=== PATIENT | female | born 1990 | race Caucasian/White ===

== ENCOUNTER → 2019-12-15 10:10 | Outpatient (BNVA) | payer MEDICAID, SELFPAY | PROVIDERS: Family Provider Family Medicine; PCP Family Medicine; Visit Provider Obstetrics & Gynecology | DX: Z34.90 Encounter for supervision of normal pregnancy, unspecified, unspecified trimester (principal) | CPT/HCPCS: 81000 ==

== ENCOUNTER → 2020-01-09 09:40 | Outpatient (BNVA) | payer MEDICAID, SELFPAY | PROVIDERS: Family Provider Family Medicine; PCP Family Medicine; Visit Provider Obstetrics & Gynecology | DX: Z34.90 Encounter for supervision of normal pregnancy, unspecified, unspecified trimester (principal) | CPT/HCPCS: 81000 ==

== ENCOUNTER 2020-01-11 20:00 | Outpatient (CLI) | payer MEDICAID, SELFPAY ==
[2020-01-11] VITALS (11 sets, daily range): BP systolic 129–193; BP diastolic 76–110; PULSE 67–98; BMI 31.5
[2020-01-11] MEDS: labetalol 200 mg Tablet 100 MG PO (20:52)
[2020-01-11 21:18] LABS: Add Urine Microscopic? YES; Bilirubin Urine Neg (NEGATIVE); Blood Urine 2+ (Negative); Glucose Urine UA Norm (Normal); Ketones Urine Negative (Negative); Leukocyte Esterase Urine 1+ (Negative); Nitrate Urine Negative (Negative); Protein Urine 1+ (Negative); Specific Gravity, Urine 1.015 (1.005-1.030); Urine Appearance Cloudy (CLEAR); Urine Color Yellow (Yellow); Urobilinogen Urine Norm (Negative); pH Urine 6.5 (5-7)
[2020-01-11 21:19] LABS: Bacteria Urine 1+; Mucus Urine 1+; RBC Urine 0-4 /hpf (0-2); Squamous Epithelial Cell Urine 80-100 (0-5); Urine Creatinine 148 mg/dL (28-217); WBC Urine 25-40 /hpf (0-5)
[2020-01-11 21:20] LABS: Urine Protein Random 89 mg/dL
== END 2020-01-11 22:15 | disposition home or self-care (01) ==
LOC: OPOB 20:06 → OBGYN 20:07
PROVIDERS: Family Provider Family Medicine; PCP Family Medicine; Visit Provider Family Medicine
DX: O16.3 Unspecified maternal hypertension, third trimester (principal); Z3A.36 36 weeks gestation of pregnancy; R51 Headache
CPT/HCPCS: 59025; 81001; 82570; 84156; 99211

== ENCOUNTER 2020-01-12 08:07 | Inpatient (IN) | payer MEDICAID, SELFPAY ==
[2020-01-12] VITALS (39 sets, daily range): BP systolic 105–168; BP diastolic 68–102; PULSE 70–100; RESP 16–18; TEMP 36.6–36.9; O2SAT 95–98; BMI 31.5
--- NOTE | 2020-01-12 07:52 | PC.NURSE ---
Patient described her symptoms upon arrival as: blurred vision, headache she rated a 10/10, nausea, feeling like she could throw up, which started around 4 am. Patient reports taking 6 am which did not help. Patient states she is having painful contractions, but unsure how close together they are.
--- NOTE | 2020-01-12 08:10 | PC.NURSE ---
Notified anesthesia -reaching Dr. Thompson - that a section was called for patient. Dr. Bonds is in the department ready to do the section as soon as anesthesia is ready. Anesthesia stated they should be ready within the hour to do the section.
--- NOTE | 2020-01-12 08:15 | P.HP_ITS ---
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 She has been followed b y this physician as well as Dr. Bonds for repeat section. Yesterday she began feeling badly and came to [facility] labor and delivery where she was found to have an elevated blood pressure of 150s over 90s. 1 dose of labetalol 100 mg brought down nicely. At that time she had a urine protein of 1+ but as she was otherwise asymptomatic she was allowed to go home. This morning she returns having said that shortly after she got home she started feeling bad again and had a severe headache overnight. Last evening she did not complain of a headache. She also complains of blurred vision this morning and continues to have 1+ edema in her lower extremities. She also has pain over her incision site. Review of Systems Const: Denies: fever(s), chills or body aches ENMT: Denies: throat pain or ear or mastoid pain Card: Reports: edema (Mostly in the legs and feet.); Denies: chest pain, palpitations or syncope Resp: Denies: dyspnea, productive cough or non-productive cough GI: Reports: nausea; Denies: abdominal pain or vomiting : Reports: pelvic pain (She feels as if she is beginning to have some contractions and she has incisional pain reports she had previous ); Denies: flank pain, difficulty voiding, vaginal bleeding or vaginal discharge Musc: Denies: neck pain or back pain Skin/Breast: Denies: rash or new lesions Neuro: Reports: headache(s) and sensory changes (Blurred vision that comes and goes.); Denies: confusion, Slurred speech present, difficulty communicating thoughts or seizure-like activity Psych: Reports: anxiety Endo: Denies: polyuria or polydipsia Kwan/Lymph: Denies: easy bruising All/Imm: Denies: urticaria Medications/Allergies Home Medications Medication Instructions Recorded Confirmed Last Taken Type prenat.vits,edward,zou-aepe-pumxh 2 tab PO DAILY tab 12/15/19 01/11/2001/09/20 10:00 History Allergies Allergy/AdvReac Type Severity Reaction Status Date / Time No Known Allergies Allergy Verified 01/12/20 08:17 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 [facility] [place] of section, low transverse (11/20/11) Performed in [place]. History of section, low transverse (03/02/14) repeat section in [place] History of section, low transverse (10/13/16) [place] [facility] [place] 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 Specific Issues/Plans * Prior section x 4 - plan repeat * Late entry to care at 17 weeks. * Considering sterilization - [facility] signed 12/15/2019 * Continuing care with Dr. Villagran. Physical Exam Const: COMMON NORMALS: patient oriented x3, healthy appearing, alert and well nourished GENERAL APPEARANCE: cooperative and anxious ORIENTATION/CONSCIOUSNESS: Yes awake, Yes oriented to person, Yes oriented to place and Yes oriented to time HENMT: COMMON NORMALS: normocephalic and Normal nasal mucous membranes and turbinates present FACE & SINUS: normal facial exam Eye: COMMON NORMALS: Equal, round and reactive pupils present and EOMs intact bilaterally Neck/C-Spine: COMMON NORMALS: full ROM and no lymphadenopathy Resp: COMMON NORMALS: normal respiratory effort, No retractions, No use of accessory muscles and clear to auscultation bilaterally Cardio: COMMON NORMALS: regular rate, regular rhythm and No murmurs present (Cardio) GI: COMMON NORMALS: Normal to inspection, nondistended, normoactive bowel sounds present and Soft to palpation; negative for non-tender PALPATION: Yes Tenderness to palpation present (GI) (Mild tenderness over previous incision.) Back/Pelvis: COMMON NORMALS: no CVA tenderness and thoracic and lumbar spine normal to inspection Extremity: COMMON NORMALS: full ROM and capillary refill normal; negative for no pedal edema (Patient has 1+ edema from approximately the knees down.) Neuro: COMMON NORMALS: patient oriented x3, CN's II-XII intact bilaterally, moves all extremities, no focal motor deficits and deep tendon reflexes 2+ bilaterally SENSORIUM/ORIENTATION: Yes alert Psych: COMMON NORMALS: mental status grossly normal APPEARANCE: Yes grossly normal MOOD & AFFECT: Yes anxious Skin: COMMON NORMALS: no rashes or lesions noted A&P Assessment and plan (1) Severe preeclampsia: Patient has signs of severe preeclampsia and therefore requires admission and delivery of the . As she has had previous sections x4 she requires a repeat section. She has discussed with this physician and Dr. Bonds her desire for tubal ligation. She will be started on magnesium with a bolus and then 2 g/h intravenously. We will monitor blood pressure and other signs and symptoms of problems. section will be performed within the hour by Dr. Bonds. Status: Acute (2) 36 weeks gestation of : This is an approximately 35 to 36-week intrauterine that has proceeded well up until this time. She requires urgent section. Dr. Bonds has been consulted. She also requested tubal ligation. Status: Acute Attestations Medical Necessity Statement*: This patient requires urgent section secondary to severe preeclampsia. She requires admission to the hospital on expect this hospital stay to probably last greater than 2 midnights. Time Spent in Patient Care: 16 - 35 minutes Coding Level of Care Code Acute Bartender for g Fwd Exam Comprehensive Diagnoses Severe preeclampsia O14.10 36 weeks gestation of Z3A.36
--- NOTE | 2020-01-12 08:32 | PM.CONSULT ---
Providers/Reason For Consult Consulting Physican/Specialty*: Ayden Bonds MD Reason for Consult*: Need for repeat Attending Physician: Shay Villagran MD Primary Care Provider: Shay Villagran MD History of Present Illness History of Present Illness Lien Dominguez is a 29 year old female 7, para 5-0-1-4 with an LMP of 04/29/2019 and an EDC of 02/03/2020 based on LMP, which places her at 36-6/7 weeks gestation. She was last seen in my office on 01/09/2020 to discuss repeat section with sterilization. Her care has been provided by Dr. Villagran. Patient presented to labor and delivery this morning complaining of not feeling well with bad headache. She had been into labor and delivery yesterday evening and was noted to have elevated blood pressure and was treated with labetalol. 24-hour urine had been started at that time. This morning she reported having a bad headache and not feeling well overall. She is also reporting worsening swelling. She reports baby has been moving well. She denied any vaginal bleeding or leaking of fluid. Review of Systems Const: Denies: fever(s) or chills Eyes: Denies: change in vision ENMT: Denies: throat pain or nasal congestion Card: Denies: chest pain, palpitations, swelling of feet/ankles or lightheadedness Resp: Denies: dyspnea, productive cough, non-productive cough or wheezing GI: Reports: abdominal pain; Denies: nausea or vomiting : Reports: urinary frequency; Denies: dysuria, vaginal bleeding or vaginal discharge Neuro: Reports: headache(s); Denies: dizziness or seizure-like activity Psych: Denies: anxiety or depression Endo: Denies: cold intolerance Kwan/Lymph: Denies: easy bruising or easy bleeding Meds/Allergies Home Medications and Allergies Home Medications Medication Instructions Recorded Confirmed Last Taken Type prenat.vits,edward,dnd-nkvy-igolo 2 tab PO DAILY tab 12/15/19 01/12/20 01/10/20 10:00 History Allergies Allergy/AdvReac Type Severity Reaction Status Date / Time No Known Allergies Allergy Verified 01/12/20 08:17 PFSH Acute PFSH: Medical History Patient denies medical problems Surgical History History of section, low transverse (07/05/09) Dx: Breech. Performed by Dr. Barney [place] [facility] [place]. History of section, low transverse (11/20/11) Performed in [place]. History of section, low transverse (03/02/14) repeat section in [place] History of section, low transverse (10/13/16) Performed by Dr. Carter at [facility] [place]. Family History Mother Diabetes Social History Smoking and tobacco status: never smoked Alcohol intake: never Substance/Drug Use: never Vitals/I&O/Wt Last Vital Signs Temp 97.9 F 01/12/20 07:52 Resp 18 01/12/20 07:52 blood pressure was 170s over 110s at my evaluation Physical Exam Const: COMMON NORMALS: no acute distress, average body habitus, alert and well nourished GENERAL APPEARANCE: well developed ORIENTATION/CONSCIOUSNESS: Yes oriented to person, Yes oriented to place and Yes oriented to time Neck/C-Spine: COMMON NORMALS: Thyroid normal GENERAL: Yes trachea midline THYROID: Thyroid normal Resp: COMMON NORMALS: normal respiratory effort and clear to auscultation bilaterally AUSCULTATION: clear to auscultation bilaterally Cardio: COMMON NORMALS: regular rate, regular rhythm, No gallops present (Cardio), No murmurs present (Cardio) and No rub (Cardio) RATE: regular rate RHYTHM: regular rhythm PERIPHERAL PULSES: posterior tibial pulses present GI: COMMON NORMALS: Soft to palpation, No hepatosplenomegaly present and no masses INSPECTION: Yes gravid abdomen AUSCULTATION: Yes normoactive bowel sounds PALPATION: Yes Soft to palpation, Yes Tenderness to palpation present (GI) (Mild tenderness in the lower abdomen over the uterine area.), Yes No hepatosplenomegaly present and No Hernia present : EXTERNAL FEMALE EXAM: No Hernia present Extremity: COMMON NORMALS: no calf tenderness NARRATIVE EXTREMITY EXAM: 2+ lower extremity edema bilaterally Neuro: COMMON NORMALS: deep tendon reflexes 2+ bilaterally (At the knees and 2 beat clonus at the ankles.) SENSORIUM/ORIENTATION: Yes alert, Yes oriented to person, Yes oriented to place and Yes oriented to time Psych: COMMON NORMALS: normal affect MOOD & AFFECT: Yes euthymic mood Skin: COMMON NORMALS: no rashes or lesions noted GENERAL SKIN EXAM: no rashes or lesions noted A&P Assessment and plan (1) Severe preeclampsia: Patient at least has gestational hypertension with severe features including severe level hypertension with severe headache. She is currently being evaluated for probable preeclampsia. Protein creatinine ratio was pending. She is being started on magnesium sulfate for seizure prophylaxis. Will treat blood pressure with medications as needed. Discussed with patient and partner that recommendations are to proceed with delivery at this time since she is 36-6/7 weeks gestation. Since she is a repeat section she will be prepared for surgery. Status: Acute Qualifiers: Trimester: third trimester Qualified Code(s): O14.13 - Severe pre-eclampsia, third trimester (2) Contraception management: On 12/15/2019, permanence of sterilization was discussed with the patient in detail. Alternatives including control pills, Ortho Evra, NuvaRing, Depo-Provera, IUDs, Nexplanon, condoms, diaphragms, family planning methods, and vasectomy were discussed with the patient. Risks and failure rates associated with these methods were discussed. Different sterilization methods including and interval sterilization by partial salpingectomy, complete salpingectomy, tubal fulguration, and Falope ring application were discussed including failure rates, surgical risks, and expectations following surgery. Inability of complete salpingectomy to be reversed was discussed. Risk of ectopic was discussed. Medicaid consent signed 12/15/2019. Sterilization was again reviewed with her on 01/09/2020 and she was still wished to proceed with sterilization. Today I reviewed with her permanence of sterilization. The inability of complete removal of the tubes to be reversed was discussed. Failure rates were discussed. Questions were answered. She still wished to proceed with sterilization with complete removal of the tubes. Status: Acute Qualifiers: Contraceptive encounter type: sterilization Qualified Code(s): Z30.2 - Encounter for sterilization (3) Maternal care for unspecified type scar from previous delivery: Patient has had 4 prior sections and is not considered a candidate. She had been previously scheduled for repeat section. I reviewed with her today the risks of repeat section including bleeding to the point of needing a blood transfusion, infection, and injury to intra-abdominal organs including bowel, bladder, blood vessels, nerves, and ureters. Questions were answered. She is being prepared for surgery. Status: Acute Qualifiers: Previous delivery type: low transverse Qualified Code(s): O34.211 - Maternal care for low transverse scar from previous delivery Coding Level of Care Code Acute Watch And Clock Repairer for Chg Fwd Diagnoses Severe preeclampsia O14.13 Trimester: third trimester Contraception management Z30.2 Contraceptive encounter type: sterilization Maternal care for unspecified type scar from previous delivery O34.211 Previous delivery type: low transverse
[2020-01-12] MEDS: magnesium sulfate premix 4 GM/100 ML PREMIX IV (08:45)
[2020-01-12] MEDS: lactated ringers 1,000 ML 999 ML IV (08:45)
[2020-01-12] MEDS: metoclopramide 5 mg/mL SDV 2 mL 10 MG IVP (09:01)
[2020-01-12] MEDS: citric acid-sodium citrate 30 mL UDC PO (09:01)
[2020-01-12] MEDS: famotidine 20 mg/2 mL INJ IVP (09:01)
[2020-01-12] MEDS: magnesium sulfate premix 20 GM/500 ML BAG IV ×2 (09:03→23:36)
--- NOTE | 2020-01-12 09:07 | PC.NURSE ---
Patient is missing monitor strip and vital signs from 0812 to 0843 due to patient admission status being changed in the computer system.
--- NOTE | 2020-01-12 09:11 | PC.NURSE ---
Dr. Thompson at patient bedside performing preop consult.
[2020-01-12 09:13] LABS: Basophils % 0.1 %; Hematocrit 37.3 % (37.0-47.0); Lymphocytes # 2.1 10^3/uL (0.8-4.8); Lymphocytes % 25.5 %; Mean Corpuscular HGB Conc 32.2 g/dL (30.0-36.0); Mean Corpuscular Hemoglobin 26.4 pg (28.0-34.0); Mean Corpuscular Volume 82.2 fL (81-99); Mean Platelet Volume 11.6 fL (7.4-10.4); Monocytes # 0.4 10^3/uL (0.2-0.9); Monocytes % 5.1 %; Neutrophils # 5.65 10^3/uL (1.8-7.7); Neutrophils % 68.8 %; Nucleated Red Blood Cells % 0 %; Platelet Count 167 10^3/cmm (130-400); Red Blood Count 4.54 10^6/uL (4.1-5.3); Red Cell Distribution Width 12.8 % (12.1-15.1); White Blood Count 8.2 10^3/uL (4.0-10.0)
--- NOTE | 2020-01-12 11:24 | P.OP_ITS ---
Operative Report Date of procedure: January 12, 2020 Pre-op Diagnosis: 1. Severe preeclampsia in third trimester at 36-6/7 weeks gestation 2. Prior section x4, not a candidate 3. Undesired fertility Post-op Diagnosis: 1. Severe preeclampsia - delivered 2. Prior section, not a candidate 3. Undesired fertility 4. Viable male infant Procedure Done: Repeat low transverse section, Bilateral complete salpingectomy Specimens removed/disposition: Right and left fallopian tubes Surgeon: Ayden Bonds Rig Supervisor: Shay Villagran Anesthesia: Other (Spinal) Estimated blood loss (mL): 500 IV fluids (mL): 1,000 Urine output (mL): 100 Complications: None Findings: 1. Viable male infant, cephalic presentation, weight 5 lbs 0 oz (2265 g), length 17-1/2 inches, Apgars 9 at 1 minute and 9 at 5 minutes 2. Normal-appearing uterus, tubes, and ovaries. Brief History: Patient is a 29-year-old 7, para 5-0-1-4 with an LMP of 04/29/2019 and an EDC of 02/03/2020 based on LMP and consistent with ultrasound, which placed her at 36-6/7 weeks gestation. She presented to labor and delivery this morning with a complaint of not feeling well and having a bad headache. She had been evaluated in L&D yesterday by Dr. Villagran, her provider for pregancy, with elevated blood pressures and was given a single dose of labetalol at that time. 24-hour urine had been started for total protein. At presentation today, she was reporting worsening swelling, development of a bad headache, and in general not feeling well. Blood pressures were again significantly elevated (highest 170s/110s). Due to the severe hypert ension and neurologic changes, she was considered as having at least severe gestational hypertension and with her 1+ proteinuria noted yesterday, she was felt to most likely represent severe preeclampsia. As a result decision was made to proceed with delivery. With her 4 prior 's, she was prepared for a repeat section. She had also stated during the she wanted to have a sterilization performed. She still desires that today. Procedure: Dr. Villagran was present for the entire case and assisted with the entire surgery. Patient was taken to the operating room where spinal anesthesia was obtained. She was prepped and draped in the usual sterile fashion in a dorsal supine position with a leftward tilt. Arguello catheter and sequential compression boots had been placed prior to starting the case. A Pfannenstiel skin incision was made with a knife through the patient's prior scar and carried down to the underlying fascia with the knife. Fascia was incised in the midline with the knife and extended laterally with Morris scissors. Superior aspect of the fascia was grasped with Boaz clamps, elevated, and sharply and bluntly dissected. The inferior aspect of the fascia was grasped with Boaz clamps, elevated, and sharply and bluntly dissected. The rectus muscles were in the midline. Peritoneum was sharply entered. Peritoneal incision was extended both superiorly and inferiorly with good visualization of the bladder. Bladder blade was inserted. The vesicouterine peritoneum was tented up and sharply entered. It was extended laterally and the bladder flap was created digitally. Bladder blade was reinserted. The lower uterine segment was noted to be quite thin. A transverse incision was made with the knife in the lower uterine segment. Clear fluid was obtained upon entry into the uterine cavity. The 's head was delivered and no nuchal cords were noted. The rest of the infant delivered atraumatically. Nose and mouth were suctioned with bulb suction. Cord was clamped and cut and the infant was handed off to the waiting nurses. Cord blood was obtained. Placenta was delivered via uterine massage. Patient received 20 units of Pitocin in the IV fluids. The uterus was exteriorized and cleared of clots and debris. The uterine incision was closed in a running locking fashion using 0 Vicryl suture. The incision was imbricated using 0 Vicryl suture in a horizontal mattress fashion. The incision was inspected and noted to be hemostatic. The left fallopian tube was grasped with Coventry clamps. The mesosalpinx was transilluminated, identifying the vessels coming to the tubes. Using 2-0 chromic suture, the vessels coming through the mesosalpinx to the fallopian tube were individually tied. The mesosalpinx was then cut with electrocautery. The vessels at the distal end of the tube were tied with a free tie of 0 plain suture. The proximal end of the tube was tied with a free stitch of 0 plain suture. These were then cut, completely excising the tube. The ends were cauterized with electrocautery. The right fallopian tube was grasped with Coventry clamps. The mesosalpinx was transilluminated, identifying the vessels coming to the tubes. Using 2-0 chromic suture, the vessels coming through the mesosalpinx to the fallopian tube were individually tied. The mesosalpinx was then cut with electrocautery. The vessels at the distal end of the tube were tied with a free tie of 0 plain suture. The proximal end of the tube was tied with a free stitch of 0 plain suture. These were then cut, completely excising the tube. The ends were cauterized with electrocautery. Posterior cul-de-sac was thoroughly irrigated and cleared of clots and blood. The uterus was returned to the abdomen. The uterine incision was irrigated and noted to be hemostatic. The gutters were cleared of clots and blood. The rectus muscles and peritoneum were reapproximated in the midline using interrupted stitches of 2-0 Vicryl suture. The muscle layer was irrigated and noted to be hemostatic. The fascia was reapproximated using 0 Vicryl suture in a running fashion. The subcutaneous layer was irrigated and brought to hemostasis using electrocautery. It was reapproximated using 3-0 plain suture in an interrupted fashion. Skin was reapproximated using 4-0 Vicryl suture in a subcuticular fashion. Steri-Strips were applied. Patient tolerated the procedures well. Sponge, needle, and instrument counts were correct. DRAINS: Arguello catheter POSTOPERATIVE STATUS: The patient was left to recover in satisfactory condition. Patient will be continued on magnesium following delivery.
[2020-01-12] MEDS: dextrose 5%-lactated ringers 1,000 ML 75 ML IV (14:00)
[2020-01-12 16:26] LABS: Magnesium Level (OB Only) 6.1 mg/dL (5.0-7.5)
[2020-01-12] MEDS: ketorolac 30 mg/mL INJ IVP ×2 (17:14→23:36)
[2020-01-12] MEDS: sodium chloride 0.9% 500 ML 999 ML IV (17:14)
[2020-01-12] MEDS: ondansetron 2 mg/ML SDV 2 mL 4 MG IVP (17:14)
[2020-01-12] MEDS: labetalol 5 mg/mL SDV 20mL 20 MG IVP (17:38)
[2020-01-12 21:22] LABS: Magnesium Level (OB Only) 6.9 mg/dL (5.0-7.5)
[2020-01-13] VITALS (19 sets, daily range): BP systolic 130–149; BP diastolic 79–98; PULSE 80–93; RESP 16; TEMP 36.7–36.9; O2SAT 95
[2020-01-13 03:10] LABS: Magnesium Level (OB Only) 6.4 mg/dL (5.0-7.5)
[2020-01-13] MEDS: dextrose 5%-lactated ringers 1,000 ML 75 ML IV (04:14)
[2020-01-13] MEDS: ketorolac 30 mg/mL INJ IVP (05:42)
--- NOTE | 2020-01-13 07:29 | ANE.PACU2 ---
Inpatient post-anesthesia follow up: Airway intact: Yes Vital signs: Temperature 98.0 F Pulse Rate 80 Respiratory Rate 16 Blood Pressure 141/86 Pulse Oximetry 97 Oxygen Delivery Me thod Room Air Oxygen Flow Rate Fraction of Inspir ed Oxygen Hydration adequate: Yes Nausea and vomiting: No Pain level: 1 Mental status: Baseline Additional Comments: no headaches, no signs of infection at epidural site, no residual numbness/weakness of legs
--- NOTE | 2020-01-13 07:38 | PM.OBGYPN ---
INSURANCE ADJUSTOR Subjective Labor: Amniotic Membrane Status: Intact Monitor Mode: External Contraction Pattern: Rare Status: Category l Vitals/I&O/Wt Last Vital Signs Temp 98.0 F 01/12/20 22:45 Pulse 80 01/13/20 07:30 Resp 16 01/12/20 12:00 BP 133/85 01/13/20 07:30 Pulse Ox 97 01/12/20 12:00 01/12/20 01/13/20 01/13/20 22:59 06:59 14:59 Intake Total 1460.00 / 1807.50 669.375 / 2476.875 Output Total 425 / 1450 700 / 2150 Balance 1035.00 / 357.50 -30.625 / 326.875 Weight last 48 hrs Weight 75.75 kg Physical Exam Narrative: EXAM NARRATIVE: Patient is doing well and denies any significant pain. She states that baby is breast-feeding well. She has had mild lochia. Const: COMMON NORMALS: no acute distress and alert ORIENTATION/CONSCIOUSNESS: Yes awake Resp: COMMON NORMALS: normal respiratory effort, No retractions and No use of accessory muscles Cardio: COMMON NORMALS: regular rate, regular rhythm and No murmurs present (Cardio) RATE: regular rate RHYTHM: regular rhythm GI: COMMON NORMALS: Normal to inspection, nondistended, normoactive bowel sounds present and Soft to palpation PALPATION: Yes Soft to palpation Extremity: GENERAL: No edema (Trace edema.) Neuro: COMMON NORMALS: CN's II-XII intact bilaterally, moves all extremities and no focal motor deficits SENSORIUM/ORIENTATION: Yes alert Psych: COMMON NORMALS: mental status grossly normal INSIGHT: Good insight present (Psych) JUDGEMENT: Good judgement present (Psych) Urinary Catheter Management^: Arguello: Cath Placed During This Visit: yes Urinary Catheter Date of Insertion: 01/12/20 Urinary Catheter Time of Insertion: 10:05 Data : 01/12/20 08:10 A&P Assessment and plan (1) Severe preeclampsia: Patient's blood pressures come down nicely. She also has less edema apparent this morning. She is feeling well. Will follow guidance of Dr. Bonds the corner brace block machine operator regarding magnesium. I suspect will be able to discontinue today. Status: Acute Qualifiers: Trimester: third trimester Qualified Code(s): O14.13 - Severe pre-eclampsia, third trimester (2) Status post delivery: Patient is doing well post surgery. She is ambulating and denies any significant pain. Status: Acute Attestations Medical Necessity Statement*: Patient is status post section for severe preeclampsia. She requires at least 1 more midnight hospital stay. Time Spent in Patient Care: 16 - 35 minutes Coding Level of Care Code Acute Law Professor for [facility] Fwd Diagnoses Severe preeclampsia O14.13 Trimester: third trimester Status post delivery Z98.891
[2020-01-13 08:33] LABS: Hematocrit 29.3 % (37.0-47.0); Hemoglobin 9.5 g/dL (11.5-15.3); Mean Corpuscular HGB Conc 32.4 g/dL (30.0-36.0); Mean Corpuscular Hemoglobin 26.7 pg (28.0-34.0); Mean Corpuscular Volume 82.3 fL (81-99); Mean Platelet Volume 11.3 fL (7.4-10.4); Platelet Count 154 10^3/cmm (130-400); Red Blood Count 3.56 10^6/uL (4.1-5.3); Red Cell Distribution Width 13.1 % (12.1-15.1); White Blood Count 7.1 10^3/uL (4.0-10.0)
[2020-01-13 08:55] LABS: Magnesium Level (OB Only) 6.3 mg/dL (5.0-7.5)
[2020-01-13] MEDS: prenatal vitamin Capsule 1 CAP PO (10:26)
[2020-01-13] MEDS: docusate sodium 100 mg Capsule PO (10:26)
--- NOTE | 2020-01-13 13:02 | PM.PN ---
Subjective Subjective: Interval history: Reports feeling better off of the magnesium. Denies lightheadedness or dizziness with sitting up in bed. Denies shortness of breath or chest pain. States headache has resolved. Denies nausea or vomiting. Tolerating clear liquids. Reports starting to pass a little flatus. Reports having more pain this morning, but has not taken any of the [place]. Vitals/I&O/Wt Last Vital Signs Temp 98.1 F 01/13/20 06:45 Pulse 84 01/13/20 12:30 Resp 16 01/13/20 06:45 BP 130/81 01/13/20 12:30 Pulse Ox 97 01/12/20 12:00 01/12/20 01/13/20 01/13/20 22:59 06:59 14:59 Intake Total 1460.00 / 1807.50 669.375 / 2476.875 Output Total 425 / 1450 800 / 2250 1450 / 1450 Balance 1035.00 / 357.50 -130.625 / 226.875 -1450 / -1450 Weight last 48 hrs Weight 167 lb Physical Exam Const: COMMON NORMALS: no acute distress, average body habitus, alert and well nourished GENERAL APPEARANCE: well developed ORIENTATION/CONSCIOUSNESS: Yes oriented to person, Yes oriented to place and Yes oriented to time Resp: COMMON NORMALS: normal respiratory effort and clear to auscultation bilaterally AUSCULTATION: clear to auscultation bilaterally Cardio: COMMON NORMALS: regular rate, regular rhythm, No gallops present (Cardio) and No rub (Cardio) RATE: regular rate RHYTHM: regular rhythm GI: COMMON NORMALS: Soft to palpation, No hepatosplenomegaly present and no masses (Except for mildly tender uterus) INSPECTION: Yes incision (Clean dry and intact with Steri-Strips present.) AUSCULTATION: Yes normoactive bowel sounds PALPATION: Yes Soft to palpation, Yes Tenderness to palpation present (GI) (Lower abdomen), Yes No hepatosplenomegaly present and No Hernia present : EXTERNAL FEMALE EXAM: No Hernia present Extremity: COMMON NORMALS: no calf tenderness NARRATIVE EXTREMITY EXAM: 1+ lower extremity edema bilaterally. SCDs in use. Neuro: SENSORIUM/ORIENTATION: Yes alert, Yes oriented to person, Yes oriented to place and Yes oriented to time Psych: COMMON NORMALS: normal affect MOOD & AFFECT: Yes euthymic mood Urinary Catheter Management^: Arguello: Cath Placed During This Visit: yes Urinary Catheter Date of Insertion: 01/12/20 Urinary Catheter Time of Insertion: 10:05 Data : 01/13/20 08:15 A&P Assessment and plan (1) Severe pre-eclampsia, delivered, current hospitalization: Patient had severe preeclampsia and was delivered yesterday morning. Was continued on magnesium following delivery for seizure prophylaxis. At the 24-hour point this morning, she had started diuresing and magnesium sulfate was stopped. She has continued to diurese since stopping the magnesium. Will increase activities at this time. Continue to monitor blood pressure with the increase in activities. Status: Acute (2) Maternal care for unspecified type scar from previous delivery: Postoperative day 1, status post repeat section with tubal ligation. Patient doing well from a surgical standpoint. May increase activities at this time. Pain medication discussed with patient. Encouraged patient to take oral medications as needed for the pain. Advance to regular diet once passing flatus. Status: Acute Qualifiers: Previous delivery type: low transverse Qualified Code(s): O34.211 - Maternal care for low transverse scar from previous delivery Attestations Medical Necessity Statement*: Postoperative day 1 with repeat cesearan section. Patient is needing bp monitoring with increase in activity due to the pre-eclampsia. Coding Level of Care Code Acute Documentation Liaison for [facility] Fwd Diagnoses Severe pre-eclampsia, delivered, current hospitalization O14.14 Maternal care for unspecified type scar from previous delivery O34.211 Previous delivery type: low transverse
[2020-01-13] MEDS: HYDROcodone-acetaminophen 5-325 mg Tablet PO ×2 (14:22→18:17)
--- NOTE | 2020-01-13 15:29 | PC.NURSE ---
pt ambulated for 15 min, Deanna dizziness, ambulated well.
[2020-01-14] VITALS (8 sets, daily range): BP systolic 146–168; BP diastolic 88–105; PULSE 69–91; RESP 16–18; TEMP 36.7–37.2; O2SAT 96–99
[2020-01-14] MEDS: lanolin oint 7 gm 1 APPLIC TOPICAL (05:27)
[2020-01-14] MEDS: HYDROcodone-acetaminophen 5-325 mg Tablet PO ×3 (05:30→15:47)
--- NOTE | 2020-01-14 06:09 | PC.NURSE ---
Pt. rating her pain at an 7-8. Pain medication given and will recheck BP
[2020-01-14] MEDS: prenatal vitamin Capsule 1 CAP PO (08:51)
--- NOTE | 2020-01-14 15:10 | PM.OBGYDC ---
Discharge Providers ASSISTANT PROFESSOR OF SOCIOLOGY Date of Admission: 01/12/20 08:07 Date of Discharge: 01/14/20 Attending Provider at Admission: Shay Villagran MD Attending Provider at Discharge: Shay Villagran MD Primary ASSISTANT PROFESSOR OF SOCIOLOGY: Ayden Bonds MD Primary Care Provider: Shay Villagran MD Diagnoses at Discharge Discharge Diagnosis (1) Severe pre-eclampsia, delivered, current hospitalization: Status: Acute (2) Maternal care for unspecified type scar from previous delivery: Status: Resolved Qualifiers: Previous delivery type: low transverse Qualified Code(s): O34.211 - Maternal care for low transverse scar from previous delivery Reason for Visit Reason for Visit: headache, increased blood pressure Hospital Course Hospital Course: Patient is a 29-year-old female 7, para 5-0-1-4 with an LMP of 04/29/2019 and an EDC of 02/03/2020 based on LMP which had placed her at 36-6/7 weeks gestation. Her care has been provided by Dr. Villagran. She had been scheduled with [facility] for a repeat section. She presented to labor and delivery in the morning of 01/12/2020 with complaint of not feeling well with a bad headache. She had been seen in labor and delivery the previous day and was noted to have elevated blood pressure that was treated with labetalol. 24-hour urine had been started at that time. However at her presentation this morning, she had worsening elevated blood pressures in the severe range with neurologic symptoms. This classified her as having severe preeclampsia. As a result, delivery was recommended. Because of her prior sections and her being a plan to repeat , Dr. Villagran consulted [facility] for the surgery and management. She had also stated during the that she wanted to proceed with sterilization which was to be performed at the time of the . She was started on magnesium sulfate for seizure prophylaxis. She was prescribed labetalol for acute blood pressure management. Repeat section was performed with delivery of a viable male weighing 5 lbs 0 oz (2265 g) with a length of 17-1/2 inches and Apgars of 9 at 1 minute and 9 at 5 minutes. Bilateral complete salpingectomy was also performed for sterilization. She was continued on magnesium sulfate following the surgery. Post Operative Day 1 Magnesium was discontinued that morning. She was at least 24 hours postdelivery and was diuresing well. She had mildly elevated blood pressures but not to the point of needing medications. She denied lightheadedness or dizziness with sitting up in bed. She was denying shortness of breath or chest pains. Her pain had worsened as the Duramorph wore off during the night and had been switched to oral medications. She was afebrile. Activities were increased through the day. She was started on clear liquids which were advanced. Blood pressure was monitored through the day and evening with the increase in activities. Postoperative Day 2 Patient was reporting doing better. She was tolerating a regular diet without nausea or vomiting. She was ambulating without lightheadedness or dizziness. She stated that her pain was controlled on oral medications. She denied shortness of breath or chest pains. She denied headaches. She denied problems with urination. She stated that her bleeding had slowed. She was requesting to go home. Physical exam: See below. Plan She had elevated blood pressures through the night and morning. These were high enough that she was started on oral labetalol. She was sent home on this. She was instructed to check her blood pressure at home and to bring those readings with her to the office. She was to follow with Dr. Villagran in 1 week. She was to follow-up in my office in 2 weeks for postoperative check. She was discharged home. Discharge instructions were discussed with her. Information Peripartum Data: Delivery Method: Section Physical Exam Const: COMMON NORMALS: no acute distress, average body habitus, alert and well nourished GENERAL APPEARANCE: well developed ORIENTATION/CONSCIOUSNESS: Yes oriented to person, Yes oriented to place and Yes oriented to time GI: COMMON NORMALS: Soft to palpation, No hepatosplenomegaly present and no masses (Except for mildly tender uterus) INSPECTION: Yes incision (Clean, dry, and intact with Steri-Strips present) AUSCULTATION: Yes normoactive bowel sounds PALPATION: Yes Soft to palpation, Yes Tenderness to palpation present (GI) (Lower abdomen), Yes No hepatosplenomegaly present and No Hernia present : EXTERNAL FEMALE EXAM: No Hernia present Extremity: COMMON NORMALS: no calf tenderness NARRATIVE EXTREMITY EXAM: 1-2+ lower extremity edema bilaterally Neuro: SENSORIUM/ORIENTATION: Yes alert, Yes oriented to person, Yes oriented to place and Yes oriented to time Psych: COMMON NORMALS: normal affect MOOD & AFFECT: Yes euthymic mood Urinary Catheter Management^: Arguello: Cath Placed During This Visit: yes Urinary Catheter Date of Insertion: 01/12/20 Urinary Catheter Time of Insertion: 10:05 Discharge Data Data Completed and Pending: Pending at discharge Category Date Time Status Pathology: Surgic al [PTH] Routine Pth 01/12/20 10:34 Received Vitals: Last Vital Signs Temp 99 F 01/14/20 15:08 Pulse 73 01/14/20 15:08 Resp 16 01/14/20 15:08 BP 168/105 01/14/20 15:08 Pulse Ox 98 01/14/20 15:08 Discharge Plan Discharge Patient Disposition: Home Condition: Stable Prescriptions: New hydrocodone-acetaminophen 5-325 mg Tablet 1 - 2 tab PO Q6H PRN (Reason: Moderate To Severe Pain) Qty: 30 RF: 0 ibuprofen 800 mg Tablet 800 mg PO TID PRN (Reason: pain) Qty: 40 RF: 0 labetalol 100 mg tablet 100 mg PO BID 30 Days Qty: 60 RF: 1 Continued prenat.vits,edward,jqj-[id number] Tablet 2 tab PO DAILY RF: 0 Discharge Orders: Discharge Order (Routine); Ordered 01/14/20 Ordered By: Ayden Bonds Referrals: Ayden Bonds MD [Physician] - 2 weeks (postoperative check) Shay Villagran MD [Primary Care Provider] - 1 week (Blood pressure follow-up in approx 1 week-01/17@1330 exam in approx 6 weeks 02/19@1515 ) Discharge Diet: Regular Discharge Activity: Limit activity as instructed Patient Instructions: Hydrocodone/Acetaminophen (By mouth), Ibuprofen (By mouth), Vitamins (By mouth), OB [facility], OB Discharge Report, OB Food/Drug Interaction Guide, OB Home Care Instructions, OB [facility] Parent Packet Activity Restrictions/Additional Instructions: Check blood pressure at home twice a day. Let Dr Villagran know if readings 160's over 110's or higher. Discharge Date/Time: 01/14/20 15:52 Discharge Attestations ASSISTANT PROFESSOR OF SOCIOLOGY Time Spent in Discharge Care*: less than 30 min Coding Level of Care Code Acute Motor Vehicle Inspector for [facility] Fwd Exam Expanded Problem Focused Diagnoses Severe pre-eclampsia, delivered, current hospitalization O14.14 Maternal care for unspecified type scar from previous delivery O34.211 Previous delivery type: low transverse
== END 2020-01-14 15:52 | disposition home or self-care (01) | DRG 785 ==
LOC: OPOB 08:12 → OBGYN 08:12
PROVIDERS: Obstetrics & Gynecology; Admitting Provider Family Medicine; PCP Family Medicine; Visit Provider Family Medicine
PROC: 10D00Z1 Extraction of Products of Conception, Low, Open Approach (ICD-10-PCS; CPT 59514; principal; 2020-01-12 09:45)
DX: O14.14 Severe pre-eclampsia complicating childbirth (principal); Z3A.36 36 weeks gestation of pregnancy; Z37.0 Single live birth; O60.14X0 Preterm labor third trimester with preterm delivery third trimester, not applicable or unspecified; O65.5 Obstructed labor due to abnormality of maternal pelvic organs; O34.211 Maternal care for low transverse scar from previous cesarean delivery; N85.8 Other specified noninflammatory disorders of uterus; Z30.2 Encounter for sterilization
CPT/HCPCS: 12345; 36415; 51702; 58611; 59025; 59409; 83735; 85025; 85027; 88302; 96374; 96375; 99211; J0690; J1885; J2274; J2405; J2765; J3010; J3475; J3490; J7030; J7040